=== PATIENT | male | born 1985 | race Hispanic/Latino ===

== ENCOUNTER 2018-10-19 18:56 | Emergency (ER) | payer MEDICAID, OTHER ==
[2018-10-19 18:56] VITALS: BMI 28.8
--- NOTE | 2018-10-19 22:25 | ED PDOC ---
History of Present Illness History of Present Illness: 33 year old male with no significant medical history presents to the ED with pleuritic chest pain and cough for the last two months. Patient has been having cough that intermittently waxes and wanes with secondary rib strain. When it initially started, he went to an urgent center where he was given a Z pack. However, over the last 5 days, he developed the dry cough again and he feels like he as pleurisy in right upper posterior chest and left lower anterior chest. Patient denies fever, rhinorrhea, sore throat or taking any medications for the pain. PMD: no regular doctor HPI: Influenza Time Seen by Provider: 10/19/18 21:14 Chief Complaint: Cough, Cold, Congestion Chief Complaint (Provider): pleuritic chest pain and cough History Per: Patient Exam Limitations: no limitations Onset/Duration Of Symptoms: Days (x2 months) Symptoms include: cough, chest pain. denies: fever, sore throat Past Medical History Reviewed: Historical Data, Nursing Documentation, Vital Signs Vital Signs: Last Vital Signs Temp 99.1 F 10/19/18 19:09 Pulse 90 10/19/18 19:09 Resp 18 10/19/18 19:09 BP 117/80 10/19/18 19:09 Pulse Ox 98 10/19/18 19:09 - Medical History PMH: No Chronic Diseases Denies: Chronic Kidney Disease - Surgical History Surgical History: No Surg Hx - Family History Family History: States: Other Other Family History: father has heart disease - Social History Current smoker - smoking cessation education provided: Yes Ex-Smoker (has not smoked in the last 12 months): No - Home Medications Home Medications: Ambulatory Orders Medication Instructions Recorded RX: Omeprazole 40 mg PO DAILY 03/14/17 RX: Ibuprofen [Motrin Tab] 600 mg PO Q8 PRN #60 tab 10/19/18 - Allergies Allergies/Adverse Reactions: Allergies Allergy/AdvReac Type Severity Reaction Status Date / Time No Known Allergies Allergy Verified 10/19/18 19:09 Review of Systems ROS Statement: Except As Marked, All Systems Reviewed And Found Negative Constitutional: Negative for: Fever ENT: Negative for: Nose Discharge, Throat Pain Cardiovascular: Positive for: Chest Pain Respiratory: Positive for: Cough Physical Exam - Reviewed Nursing Documentation Reviewed: Yes Vital Signs Reviewed: Yes - Physical Exam Appears: Positive for: No Acute Distress Head Exam: Positive for: ATRAUMATIC, NORMOCEPHALIC Skin: Positive for: Warm, Dry Eye Exam: Positive for: EOMI, PERRL ENT: Negative for: Pharyngeal Erythema, Tonsillar Exudate Neck: Positive for: Painless ROM, Supple Cardiovascular/Chest: Positive for: Regular Rate, Rhythm, Other (tenderness to the left anterior lower ribs, no crepitus, no step off). Negative for: Edema, Murmur Respiratory: Positive for: Normal Breath Sounds. Negative for: Crackles, Rales, Rhonchi, Wheezing Gastrointestinal/Abdominal: Positive for: Soft. Negative for: Tenderness Back: Positive for: Normal Inspection. Negative for: Vertebral Tenderness, Muscle Spasm Extremity: Positive for: Normal ROM. Negative for: Deformity Lymphatic: Negative for: Adenopathy Neurologic/Psych: Positive for: Alert. Negative for: Motor/Sensory Deficits Medical Decision Making Medical Decision Making: Time: Initial Impression: Cough Initial Plan: --CXR Time: 2217 --XR with acute abnormalities, patient is stable for discharge home and advised to follow up with PMD and possible referral to [facility] ---- Scribe Attestation: Documented by Jessica Fabian, acting as a scribe for Dorcas Rodriguez MD Provider Scribe Attestation: All medical record entries made by the Scribe were at my direction and personally dictated by me. I have reviewed the chart and agree that the record accurately reflects my personal performance of the history, physical exam, medical decision making, and the department course for this patient. I have also personally directed, reviewed, and agree with the discharge instructions and disposition. - ECG O2 Sat by Pulse Oximetry: 98 (RA) Pulse Ox Interpretation: Normal Disposition - Clinical Impression Clinical Impression: Cough Counseled Patient/Family Regarding: Studies Performed, Diagnosis, Need For Followup, Rx Given - Disposition Referrals: [facility] [Outside] (FOLLOW UP WITH [facility] OR YOUR PMD IN 1-2 DAYS. YOU MAY NEED A REFERRAL TO A [facility] FOR FURTHER EVALUATION) Disposition: Routine/Home Disposition Time: 22:00 Condition: STABLE Prescriptions: RX: Ibuprofen [Motrin Tab] 600 mg PO Q8 PRN #60 tab PRN Reason: Pain, Moderate (4-7) Instructions: Cough, Adult (DC), Quitting Smoking, Costochondritis (DC) Forms: [employer] ([place]), [facility] School/Work Excuse
[2018-10-20 01:07] VITALS: BP 117/80; PULSE 90; RESP 18; TEMP 99.1; O2SAT 98
--- NOTE | 2018-10-20 10:29 | RAD ---
Date of service: 10/19/2018 HISTORY: Cough and chest pain COMPARISON: No prior. TECHNIQUE: Chest PA and lateral FINDINGS: LINES AND TUBES: None. LUNG AND PLEURA: The lungs are well inflated and clear. No pleural effusion or pneumothorax. HEART AND MEDIASTINUM: The heart is not enlarged. No aortic atherosclerotic calcification present. The hilar and mediastinal contours are within normal limits. SKELETAL STRUCTURES: The bony structures are within normal limits for the patient's age. VISUALIZED UPPER ABDOMEN: Normal. OTHER FINDINGS: None. IMPRESSION: No active pulmonary disease.
== END 2018-10-19 22:38 | disposition home or self-care (01) ==
LOC: H.ER 18:56
DX: R05 Cough (principal); F17.200 Nicotine dependence, unspecified, uncomplicated